=== PATIENT | male | born 1950 | race Caucasian/White ===

== ENCOUNTER 2017-03-07 01:26 | Inpatient (IN) ==
[2017-03-07] MEDS ORDERED: Vancomycin 500 MG in D5% in Water (Mini-Bag+) 100 ML IVPB ONE (05:38)
--- NOTE | 2017-03-07 05:48 | Internal Med History&Physical ---
Date of Encounter: 03/07/17 Time of Encounter: 04:45 Assessment and Plan (1) Cellulitis of left leg Current visit: No Status: Acute Patient will be treated with IV antibiotics. -Vancomycin dosed per pharmacy. -Levaquin 750 mg IV daily. -Blood cultures ordered. (2) Abscess of left arm Current visit: No Status: Acute Patient will be treated with IV antibiotics. -Vancomycin dosed per pharmacy. -Levaquin 750 mg IV daily. -Blood cultures ordered. (3) Abscess Current visit: No Status: Acute Internal Medicine - H&P: HPI Chief complaint: Abscess on left arm and left leg Admitted From: Home History of present illness: Mr. Montgomery is a 66 year old male with past medical history of COPD who presented to the hospital with chief complaint of several insect bites on his left arm and left leg. Patient was seen by Dr. Ruiz who did an incision and drainage packing of the left arm and left knee abscess. Patient states that his 2 sites of infection are swollen and red and have progressively gotten worse. Patient states that his left leg has swollen. He states that it is also gotten red and has started to become painful. Patient was observed to have +2 left lower extremity edema with erythema and increased warmth on the left lower extremity. Patient has a well demarcated redness on his left leg that is circumferential. Area is tender to palpation. Patient did not have any numbness or tingling in this area. Left lower foot has good pulses. Patient also has an abscess on the left forearm located at the proximal mid dorsal forearm region just distal to the elbow. Patient was initially given antibiotics, 4 days of Keflex and one day of Cleocin, but this did not improve the patient's symptoms. Patient is admitted to the hospital for inpatient treatment with IV antibiotics. Upon admission, patient is still in pain in these areas although there is no restriction in range of motion and no neurologic deficits. Patient's vital signs were as follows: Temperature is 97.9 , pulse rate was 87, respiratory rate was 20, blood pressure was 174/78, and O2 saturation was 97%. Patient denies nausea, vomiting, fever, chills, shortness of breath, or bleeding. Past Med Surg Social Fam HX - Past Medical History Medical history: arthritis, CHF, COPD, GERD, hypertension Psychiatric history: no psych history - Social History Smoking Status: Former smoker Smokeless Tobacco Status: No Alcohol use: none Drug use: none - Family History Father Adopted: No Family Member Ethnicity: Non- Living Status: Hx Family Cardiac Disorders: Yes (CHF) Hx Family Respiratory Disorders: No Hx Family Cancer: No Hx Family GI Disorders: No Hx Family Endocrine Disorder: No Hx Family Neuromuscular Disorders: No Hx Family Neurologic Disorders: No Hx Family HEENT Disorders: No Hx Family Autoimmune Disorders: No Daughter Adopted: No Family Member Ethnicity: Non- Hx Family Cardiac Disorders: Yes (HTN) Hx Family Respiratory Disorders: No Hx Family Cancer: No Hx Family GI Disorders: Yes (GERD, Cholelithiasis) Hx Family Endocrine Disorder: No Hx Family Neuromuscular Disorders: Yes (Migraine) Hx Family Neurologic Disorders: No Hx Family HEENT Disorders: No Hx Family Autoimmune Disorders: No Internal Medicine - H&P: Meds Finasteride [Propecia] 5 mg PO DAILY 11/04/15 [History] Furosemide [Lasix] 20 mg PO DAILY 11/04/15 [History] Albuterol Neb [Proventil Neb] 2.5 mg IH Q6H 04/23/16 [History] Albuterol Sulfate [Proair Hfa] 2 puff IH Q4H PRN 04/23/16 [History] Budesonide/Formoterol 160/4.5 [Symbicort 160/4.5] 2 puff IH BIDR 04/23/16 [ History] Cetirizine HCl [Zyrtec] 10 mg PO DAILY 04/23/16 [History] Guaifenesin [Mucus Relief] 400 mg PO Q4H PRN 04/23/16 [History] Tiotropium [Spiriva] 18 mcg IH DAILY 04/23/16 [History] Azithromycin [Zithromax] 250 mg PO DAILY 03/05/17 [History] Clindamycin [Cleocin] 450 mg PO TID #60 capsule 03/05/17 [Rx] Ipratropium Neb [Atrovent Neb] 0.5 mg IH Q6HR 03/05/17 [History] Potassium Citrate [Urocit-K] 10 meq PO DAILY 03/06/17 [History] Ibuprofen 800 mg PO TID 03/07/17 [History] 3 Allergy/AdvReac Type Severity Reaction Status Date / Time Penicillins Allergy See Verified 03/06/17 23:19 Comments All Systems PM: A 10-system review of systems was performed and is negative for pertinent findings except as documented above in the HPI. - Constitutional Constitutional: no chills, no fatigue, no fever(s) - Cardiovascular Cardiovascular ROS IM: no dyspnea - Respiratory Respiratory: no cough, no dyspnea, no wheezing, no excessive phlegm production - Integumentary Integumentary IM: erythema - Constitutional Vitals: Temp Pulse Resp BP Pulse Ox 97.5 F L 83 16 173/79 94 03/07/17 03:45 03/07/17 03:45 03/07/17 03:45 03/07/17 03:45 03/07/17 03:45 General appearance: Present: no acute distress - Head Head exam: Present: normal inspection - Cardiovascular Cardiovascular exam: Present: RRR, +S1, +S2. Absent: diastolic murmur, gallop, rubs, systolic murmur - Extremities Exam Extremities exam: Present: tenderness, warm Additional comments: Patient has redness and swelling in his left lower extremity. - Skin Skin exam: Present: erythema, warm - Expanded Skin Exam Type of lesion: Present: abscess (Abscess present on left arm and left lower leg )
--- NOTE | 2017-03-07 05:55 | Event Note ---
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 Patient has cellulitis of the left leg and infected left knee superficial wound with field outpatient therapy. With such patient vancomycin Levaquin to cover for MRSA as well as Gram negatives. He has good range of motion of the left knee joint so doubt that the left knee is affected. await wound and blood cultures. Patient felt that these wounds left knee and left forearm happened related to spider bites. We will give tetanus shot
[2017-03-07] MEDS ORDERED: Vancomycin 1,500 MG in D5% in Water 250 ML IVPB SCH (06:00)
[2017-03-07] MEDS: *HR* Heparin 5,000 UNIT/ML VIAL SQ SCH ×3 (06:10→21:54)
[2017-03-07 06:22] LABS: Basophils # 0.1 K/mcL (0.0-0.2); Basophils % 0.7 %; Eosinophils # 0.3 K/mcL (0.0-0.6); Eosinophils % 3.1 %; Hematocrit 36.1 % (37.5-50.1); Immature Granulocytes % 0.5 % (0-4); Lymphocytes # 1.7 K/mcL (0.6-4.6); Mean Corpuscular HGB Conc 30.5 g/dL (31.6-35.5); Mean Corpuscular Hemoglobin 27.2 pg (28.0-33.3); Mean Corpuscular Volume 89.1 fL (83.0-100.0); Mean Platelet Volume 10.1 fL (9.4-12.4); Monocytes # 0.6 K/mcL (0.0-1.3); Monocytes % 7.7 %; Neutrophils # 5.4 K/mcL (1.6-8.9); Platelet Count 334 K/mcL (140-400); Red Blood Count 4.05 M/mcL (4.19-5.50); Red Cell Distribution Width 12.6 % (11.5-14.5)
[2017-03-07 06:35] LABS: BUN/Creatinine Ratio 29 (6-26); Blood Urea Nitrogen 17 mg/dL (8-26); C-Reactive Protein 51 mg/L (Less than 5); Calcium 9.1 mg/dL (8.6-10.8); Carbon Dioxide 34 mEq/L (19-29); Chloride 100 mEq/L (98-109); Glucose 97 mg/dL (70-99); Magnesium 1.8 mg/dL (1.6-2.6); Osmolality,Calculated 293 (280-300); Potassium 3.8 mEq/L (3.5-4.5); Sodium 141 mEq/L (136-145); eGFR For African Americans > 60 (> 60); eGFR For Non-African Americans > 60 (> 60)
[2017-03-07] MEDS: Furosemide 20 MG TABLET PO SCH (09:15)
[2017-03-07] MEDS: Finasteride 5 MG TABLET PO SCH (09:15)
[2017-03-07] MEDS: Levofloxacin 750 MG/150 ML 750 MG/150 ML BAG IVPB SCH (09:15)
[2017-03-07] MEDS: Loratadine 10 MG TABLET PO SCH (09:15)
[2017-03-07] MEDS ORDERED: Albuterol 2.5 MG/3 ML NEBULIZER IH SCH (10:00)
[2017-03-07] MEDS ORDERED: Ipratropium Neb 0.5 MG NEBULIZER IH SCH (10:00)
[2017-03-07] MEDS: Ibuprofen 800 MG TABLET PO PRN ×2 (11:03→19:02)
[2017-03-07] MEDS: Budesonide/Formoterol 160/4.5 MDI IH SCH ×2 (11:16→20:23)
[2017-03-07] MEDS: Tiotropium 18 MCG inhalation IH SCH (11:17)
[2017-03-07] MEDS: Vancomycin 1,500 MG in D5% in Water 250 ML IVPB SCH ×2 (13:48→23:53)
[2017-03-07] MEDS: Ipratropium/Albuterol Neb 3 ML IH SCH ×2 (16:10→22:22)
[2017-03-08] MEDS: Ipratropium/Albuterol Neb 3 ML IH SCH ×4 (03:26→22:32)
[2017-03-08] MEDS: *HR* Heparin 5,000 UNIT/ML VIAL SQ SCH ×3 (05:17→22:18)
[2017-03-08] MEDS: Ibuprofen 800 MG TABLET PO PRN ×3 (05:22→22:29)
[2017-03-08 08:09] LABS: Basophils # 0.1 K/mcL (0.0-0.2); Basophils % 0.8 %; Eosinophils # 0.3 K/mcL (0.0-0.6); Hematocrit 39.2 % (37.5-50.1); Hemoglobin 11.7 g/dL (12.9-16.9); Immature Granulocytes % 0.4 % (0-4); Lymphocytes # 1.7 K/mcL (0.6-4.6); Lymphocytes % 24.4 %; Mean Corpuscular HGB Conc 29.8 g/dL (31.6-35.5); Mean Corpuscular Hemoglobin 26.4 pg (28.0-33.3); Mean Corpuscular Volume 88.3 fL (83.0-100.0); Mean Platelet Volume 9.8 fL (9.4-12.4); Monocytes # 0.5 K/mcL (0.0-1.3); Monocytes % 7.6 %; Neutrophils # 4.4 K/mcL (1.6-8.9); Platelet Count 362 K/mcL (140-400); Red Blood Count 4.44 M/mcL (4.19-5.50); Red Cell Distribution Width 12.5 % (11.5-14.5); Segmented Neutrophils % 62.8 %
[2017-03-08 08:23] LABS: BUN/Creatinine Ratio 18 (6-26); Blood Urea Nitrogen 12 mg/dL (8-26); Calcium 9.7 mg/dL (8.6-10.8); Carbon Dioxide 37 mEq/L (19-29); Chloride 100 mEq/L (98-109); Glucose 95 mg/dL (70-99); Osmolality,Calculated 294 (280-300); Potassium 4.3 mEq/L (3.5-4.5); Sodium 142 mEq/L (136-145); eGFR For African Americans > 60 (> 60); eGFR For Non-African Americans > 60 (> 60)
[2017-03-08] MEDS: Levofloxacin 750 MG/150 ML 750 MG/150 ML BAG IVPB SCH (09:02)
[2017-03-08] MEDS: Furosemide 20 MG TABLET PO SCH (09:04)
[2017-03-08] MEDS: Loratadine 10 MG TABLET PO SCH (09:04)
[2017-03-08] MEDS: Finasteride 5 MG TABLET PO SCH (09:04)
[2017-03-08] MEDS: Budesonide/Formoterol 160/4.5 MDI IH SCH ×2 (11:01→22:32)
[2017-03-08] MEDS: Tiotropium 18 MCG inhalation IH SCH (11:02)
--- NOTE | 2017-03-08 12:52 | Venous Imaging Report ---
LE Venous Duplex Patient Name:Jimenez Montgomery Order Number:[id number] Procedure Date:03/07/2017 Date:1950Age:66 yrs Gender:Male Location:[facility] Room #: 3A23 Stone Unloader:Sara Falk RDCS, RVT Referring MD:Nixon Littlejohn MD Reading MD:José Carter MD , FACS Primary Indications:Swelling of limb Secondary Indications: Impressions: Left lower extremity: normal superficial and deep exam. Recommendations: Preliminary given to Dr Littlejohn in person on 3A. Findings Venous Duplex Results: Left: Venous imaging of the lower extremity reveals full patency and normal vessel compressibility of the left distal iliac, left common femoral, left superficial femoral, left popliteal, left posterior tibial, left peroneal, left great saphenous and left lesser saphenous. Doppler signals in the evaluated veins were normal. Prior Study: No prior study available for comparison. Lower Extremity Venous Duplex Side Vein Compress Spontaneous Flow Augment Diameter (cm) Depth (cm) Left Distal Iliac Normal Yes Phasic Yes Left Common Femoral Normal Yes Phasic Yes Left Superficial Femoral Normal Yes Phasic Yes Left Popliteal Normal Yes Phasic Yes Left Posterior Tibial Normal Yes Phasic Yes Left Peroneal Normal Yes Phasic Yes Left Great Saphenous Normal Yes Phasic Yes Left Lesser Saphenous Normal Yes Phasic Yes Updated by José Carter MD, FACS on 03/08/2017 12:46:42 PM José Carter MD electronically signed on 03/08/2017 12:46:59 PM with status of Final
[2017-03-08] MEDS: Vancomycin 1,500 MG in D5% in Water 250 ML IVPB SCH (13:32)
--- NOTE | 2017-03-08 18:45 | Internal Med Progress Note ---
Date of Encounter: 03/08/17 Time of Encounter: 10:00 - Assessment and plan (1) Abscess Current Visit: No Status: Acute Assessment and plan: -Patient with decreased erythema/cellulitis on left elbow and left knee. -Levaquin discontinued and will continue vancomycin. - Subjective Interval history: Patient reports that elbow feels improved. - Constitutional Vitals: Temp Pulse Resp BP Pulse Ox 97.6 F 86 16 151/76 98 03/08/17 15:41 03/08/17 15:41 03/08/17 16:19 03/08/17 15:41 03/08/17 16:19 General appearance: Present: no acute distress - Respiratory Respiratory exam: Present: CTAB. Absent: accessory muscle use, rales, rhonchi, wheezes - Cardiovascular Cardiovascular exam: Present: RRR, +S1, +S2. Absent: diastolic murmur, gallop, rubs, systolic murmur - Skin Skin exam: Present: erythema (Left elbow: There is decreased erythema without any drainage; left knee: Decreased erythema noted) Internal Medicine: Result - Labs CBC & Chem 7: 03/08/17 08:03 03/08/17 08:03 Labs: Short CBC 03/08/17 Range/Units 08:03 WBC 7.1 (4.3-11.1) K/mcL Hgb 11.7 L (12.9-16.9) g/dL Hct 39.2 (37.5-50.1) % Plt Count 362 (140-400) K/mcL Neutrophils # 4.4 (1.6-8.9) K/mcL BMP 03/08/17 08:03 Sodium 142 Potassium 4.3 Chloride 100 Carbon Dioxide 37 H BUN 12 Creatinine 0.67 L Glucose 95 Calcium 9.7 Consult Discharge Plan - Plan Referrals: Star Ruiz MD [Primary Care Provider] -
[2017-03-09] MEDS: Vancomycin 1,500 MG in D5% in Water 250 ML IVPB SCH ×2 (02:44→13:35)
[2017-03-09] MEDS: Ipratropium/Albuterol Neb 3 ML IH SCH ×2 (03:29→10:58)
[2017-03-09] MEDS: *HR* Heparin 5,000 UNIT/ML VIAL SQ SCH (06:42)
[2017-03-09] MEDS: Finasteride 5 MG TABLET PO SCH (08:46)
[2017-03-09] MEDS: Furosemide 20 MG TABLET PO SCH (08:46)
[2017-03-09] MEDS: Loratadine 10 MG TABLET PO SCH (08:46)
--- NOTE | 2017-03-09 10:55 | Discharge Summary ---
<Marianne Vaughn H - Last Filed: 03/09/17 10:52> Date of Encounter: 03/09/17 Time of Encounter: 10:52 - Discharge Diagnosis (1) Cellulitis Priority: Primary Status: Acute Qualifiers: Laterality: left Qualified Code(s): L03.114 - Cellulitis of left upper limb (2) Abscess Priority: Secondary Status: Acute (3) COPD (chronic obstructive pulmonary disease) Priority: Secondary Status: Acute Qualifiers: COPD type: unspecified COPD Qualified Code(s): J44.9 - Chronic obstructive pulmonary disease, unspecified (4) CHF (congestive heart failure) Priority: Secondary Status: Acute Qualifiers: Congestive heart failure type: systolic Congestive heart failure chronicity : unspecified congestive heart failure chronicity Qualified Code(s): I50.20 - Unspecified systolic (congestive) heart failure (5) GERD (gastroesophageal reflux disease) Priority: Secondary Status: Acute Qualifiers: Esophagitis presence: esophagitis presence not specified Qualified Code(s) : K21.9 - Gastro-esophageal reflux disease without esophagitis (6) HTN (hypertension) Priority: Secondary Status: Acute Qualifiers: Hypertension type: essential hypertension Qualified Code(s): I10 - Essential (primary) hypertension - Discharge Medications Prescriptions: Doxycycline 100 mg PO BID #22 capsule Home Medications: Finasteride [Propecia] 5 mg PO DAILY 11/04/15 [History] Furosemide [Lasix] 20 mg PO DAILY 11/04/15 [History] Albuterol Neb [Proventil Neb] 2.5 mg IH Q6H 04/23/16 [History] Albuterol Sulfate [Proair Hfa] 2 puff IH Q4H PRN 04/23/16 [History] Budesonide/Formoterol 160/4.5 [Symbicort 160/4.5] 2 puff IH BIDR 04/23/16 [ History] Cetirizine HCl [Zyrtec] 10 mg PO DAILY 04/23/16 [History] Tiotropium [Spiriva] 18 mcg IH DAILY 04/23/16 [History] Ipratropium Neb [Atrovent Neb] 0.5 mg IH Q6HR 03/05/17 [History] Potassium Citrate [Urocit-K] 10 meq PO DAILY 03/06/17 [History] Guaifenesin [Mucinex] 600 mg PO BID PRN 10/02/17 [History] Doxycycline 100 mg PO BID #22 capsule 03/09/17 [Rx] Allergies/Adverse Reactions: 3 Allergy/AdvReac Type Severity Reaction Status Date / Time Penicillins Allergy See Verified 03/06/17 23:19 Comments Procedures/tests Complete & Pending: Procedures Performed prior 72 hours Category Date Time Status Venous Doppler [EV venous imaging LE LT] Stat Y 03/07/17 13:36 Completed Date of admission: 03/07/17 05:35 Primary care physician: Star Ruiz MD - Patient Status Disposition: Home, Self-Care Condition: Good Overall status at discharge: patient is progressing back to baseline - Discharge Instructions Instructions: Cellulitis (DC) Follow Up With: Star Ruiz MD [Primary Care Provider] - 03/15/17 2:00 pm Additional Instructions: Please continue to monitor your wounds located on her elbow and knee. Please continue to take the full 11 day course of antibiotics we are sending him home with. If you develop any increasing redness, warmth, or fevers, please return to the emergency department. Otherwise please follow-up with your primary care provider in the next 1-2 weeks. - Diet and Activity Activity: increase activity as tolerated Diet: advance to your usual diet, low fat, low cholesterol Hospital course: Mr. Montgomery is a 66 year old male with past medical history of COPD, hypertension, congestive heart failure, and GERD. He presented to the emergency department 2 days ago after failing outpatient antibiotic management of 2 extremity abscesses. Patient was admitted and started on IV vancomycin and Levaquin for cellulitis of his left elbow and left knee. Per patient, he had visited the [place] ED on Wednesday during which he had an abscess drained on his elbow. They did not drain the area of infection on his knee. He was discharged home with Keflex. The surrounding erythema and warmth did not decrease, it instead increased. When he presented to the emergency department here, it was noticed that the area of erythema and warmth had increased. He was admitted for IV antibiotics. During hospitalization, he had a Doppler of his left lower extremity due to increased unilateral edema on his left calf. This resulted in no evidence of venous thrombosis. Patient's wound culture grew MRSA which was sensitive to doxycycline. Patient has had 3 days of IV vancomycin. He will be discharged home with a prescription for 11 days of doxycycline 100 mg twice a day to complete a 14 course of antibiotics. Patient was resting comfortably this morning, in no apparent distress. He felt comfortable and ready to be discharged home from the hospital. All questions were answered. Patient had no concerns. - Time Spent with Patient Total time spent providing and/or coordinating discharge services: Greater than 30 minutes (40 minutes) - Constitutional Vitals: Temp Pulse Resp BP Pulse Ox 97.5 F L 80 18 141/73 97 03/09/17 07:38 03/09/17 07:38 03/09/17 07:38 03/09/17 07:38 03/09/17 07:38 General appearance: Present: no acute distress - Respiratory Respiratory exam: Present: decreased breath sounds. Absent: accessory muscle use, rales, respiratory distress, rhonchi, stridor, wheezes, tachypnea - Cardiovascular Cardiovascular exam: Present: distant heart sounds, RRR, systolic murmur. Absent: bradycardia, JVD, tachycardia - GI/Abdominal GI/Abdominal exam: Present: soft. Absent: tenderness - Extremities Exam Extremities exam: Present: pedal edema (2+. Left lower extremity with diffuse erythema and scaling consistent with chronic venous stasis dermatitis.), radial pulses palpable and symmetrical. Absent: calf tenderness, tenderness Additional comments: There is a 1 cm in diameter open wound on the left knee, anterior surface. There is no surrounding erythema. There is good granulation tissue on top of the wound. There is a red wound on the left lateral surface of the patient's elbow. There is minimal surrounding erythema, no warmth noted, no crepitance or fluctuance. There is a central opening in the wound with purulent discharge coming out. - Neurological Exam Neurological exam: Present: CN II-XII intact, oriented X3, no focal deficits. Absent: pronater drift, facial droop, speech deficit <Bowen Martins - Last Filed: 03/09/17 12:28> Date of Encounter: 03/09/17 - Discharge Diagnosis (1) Abscess Status: Acute (2) COPD (chronic obstructive pulmonary disease) Status: Acute Qualifiers: COPD type: unspecified COPD Qualified Code(s): J44.9 - Chronic obstructive pulmonary disease, unspecified (3) Cellulitis Status: Acute Qualifiers: Laterality: left Qualified Code(s): L03.114 - Cellulitis of left upper limb (4) CHF (congestive heart failure) Status: Acute Qualifiers: Congestive heart failure type: systolic Congestive heart failure chronicity : chronic Qualified Code(s): I50.22 - Chronic systolic (congestive) heart failure (5) GERD (gastroesophageal reflux disease) Status: Acute Qualifiers: Esophagitis presence: esophagitis presence not specified Qualified Code(s) : K21.9 - Gastro-esophageal reflux disease without esophagitis (6) HTN (hypertension) Status: Chronic Qualifiers: Hypertension type: essential hypertension Qualified Code(s): I10 - Essential (primary) hypertension Procedures/tests Complete & Pending: Procedures Performed prior 72 hours Category Date Time Status Venous Doppler [EV venous imaging LE LT] Stat Y 03/07/17 13:36 Completed Date of admission: 03/07/17 05:35 Primary care physician: Star Ruiz MD Hospital course: Mr. Montgomery is a 66 year old male - Time Spent with Patient Total time spent providing and/or coordinating discharge services: - Constitutional Vitals: Temp Pulse Resp BP Pulse Ox 97.5 F L 89 19 179/61 96 03/09/17 11:44 03/09/17 11:44 03/09/17 11:44 03/09/17 11:44 03/09/17 11:44 - Attending Attestation I independently saw and examined this patient on 03/09/2017, I have reviewed his chart as well. Diagnoses and management plan was discussed with the patient, and the resident physician. 66-year-old male admitted and being managed for left lower extremity cellulitis and left arm abscess secondary to MRSA. He has a past medical history of COPD with chronic hypoxic respiratory failure on home oxygen, CHF, and hypertension. He denies new complaints this morning. Physical exam he is afebrile vital signs are stable. He is not in any form of distress. Chest is clear to auscultation bilaterally. His abdomen is soft and nontender. He has a dressing on his left elbow that is clean and dry. His left lower extremity is swollen and nontender. He also has chronic venous stasis changes Labs and imaging reviewed: microbiology reveals mrsa from his left arm and elbow wound culture. vanco trough 13.2 cbc and chemistry within normal limits. Venous Doppler ruled out DVT The patient is stable to be discharged home on doxycycline to complete 14 days of therapy. His other chronic medical conditions are stable. Follow up with PCP Rest of details as in the resident physicians documentation.
[2017-03-09] MEDS: Budesonide/Formoterol 160/4.5 MDI IH SCH (10:58)
[2017-03-09] MEDS: Tiotropium 18 MCG inhalation IH SCH (10:59)
[2017-03-09] MEDS: Ibuprofen 800 MG TABLET PO PRN (11:34)
[2017-03-09 11:50] VITALS: BP 179/61
[2017-03-09] MEDS ORDERED: Silvasorb 44.4 ML TUBE TP SCH (14:15)
[2017-03-09] MEDS ORDERED: Aminoglycoside Consult 1 EACH MC ONE (14:54)
== END 2017-03-09 14:55 | disposition home or self-care (01) | DRG 603 ==
LOC: 3ANU → SUATTDRO 05:35
PROVIDERS: ADMIT Hospitalist; ATTEND Internal Medicine